=== PATIENT | female | born 1995 | race Caucasian/White ===

== ENCOUNTER 2016-07-28 22:57 | Emergency (ER) | payer OTHER ==
[~2016-07-28] VITALS: Ht 152.4 cm; Wt 62.1 kg
[2016-07-28 22:59] VITALS: BP 123/77
== END 2016-07-29 00:05 | disposition home or self-care (01) ==
LOC: ED 23:59
DX: N89.8 Other specified noninflammatory disorders of vagina (principal); R10.2 Pelvic and perineal pain
CPT/HCPCS: 99283